=== PATIENT | female | born 1990 | race Two or more races ===

== ENCOUNTER 2020-12-03 06:00 | Day surgery (SDC) | payer OTHER ==
[~2020-12-03 06:00] MED LIST: ELAVIL PO; [UNRECOGNIZED DRUG - OTHER] PO
== END 2020-12-03 15:15 | disposition home or self-care (01) ==
LOC: CIR.AMB 06:00
PROVIDERS: ATTEND Obstetrics & Gynecology Maternal & Fetal Medicine
DX: N84.0 Polyp of corpus uteri (principal); Z20.822 Contact with and (suspected) exposure to COVID-19

== ENCOUNTER 2022-10-18 20:31 | Emergency (ER) | payer OTHER ==
[~2022-10-18] VITALS: Ht 162.6 cm; Wt 65.8 kg
== END 2022-10-19 03:33 | disposition home or self-care (01) ==
LOC: ER 20:31
DX: O20.9 Hemorrhage in early pregnancy, unspecified (principal); Z3A.11 11 weeks gestation of pregnancy

== ENCOUNTER 2023-04-19 12:13 | Inpatient (IN) | payer OTHER ==
[~2023-04-19] VITALS: Ht 162.6 cm; Wt 77.6 kg
[2023-05-04] MEDS ORDERED: PRENATAL TABLE1 EAC1 PO (09:30)
[2023-05-04] MEDS ORDERED: PREVACID15 M1 PO (09:32)
== END 2023-05-06 14:07 | disposition home or self-care (01) | DRG 807 ==
LOC: OB/GYN 05-03 12:11 → LDR 05-04 07:57 → OB/GYN 05-04 16:07
PROVIDERS: Obstetrics & Gynecology Gynecology; ADMIT Obstetrics & Gynecology; ATTEND Obstetrics & Gynecology
PROC: 10E0XZZ Delivery of Products of Conception, External Approach (ICD-10-PCS; principal; 2023-05-04)
PROC: 0KQM0ZZ Repair Perineum Muscle, Open Approach (ICD-10-PCS; 2023-05-04)
PROC: 4A1HXCZ Monitoring of Products of Conception, Cardiac Rate, External Approach (ICD-10-PCS; 2023-05-04)
DX: O70.1 Second degree perineal laceration during delivery (principal); Z37.0 Single live birth; Z3A.39 39 weeks gestation of pregnancy; Z20.822 Contact with and (suspected) exposure to COVID-19

== ENCOUNTER 2023-04-29 08:11 | Outpatient (CLI) | payer OTHER | END 2023-04-29 09:21 | disposition home or self-care (01) | LOC: NST 08:11 | PROVIDERS: ATTEND Obstetrics & Gynecology | DX: Z34.83 Encounter for supervision of other normal pregnancy, third trimester (principal) ==